=== PATIENT | female | born 1990 | race Caucasian/White ===

== ENCOUNTER 2021-09-18 12:08 | Emergency (ER) | payer OTHER ==
[~2021-09-18] VITALS: Ht 172.7 cm; Wt 54.5 kg
[2021-09-18 12:32] LABS: BASOPHILS % (AUTO) 0.3 % (0-1); EOSINOPHILS # (AUTO) 0.1 X10'3 (0-0.9); EOSINOPHILS % (AUTO) 0.7 % (0-6); HEMATOCRIT 45.9 % (35.0-45.0); HEMOGLOBIN 15.4 g/dl (12.0-16.0); LYMPHOCYTES # (AUTO) 1.6 X10'3 (1.1-4.8); LYMPHOCYTES % (AUTO) 11.9 % (21-51); MEAN CORPUSCULAR HEMOGLOBIN 30.4 PG (27.0-31.0); MEAN CORPUSCULAR HGB CONC 33.6 g/dL (33.0-36.5); MEAN CORPUSCULAR VOLUME 90.4 FL (78-98); MONOCYTES # (AUTO) 0.8 X10'3 (0-0.9); MONOCYTES % (AUTO) 5.5 % (2-12); NEUTROPHILS # (AUTO) 11.3 X10'3 (1.8-7.7); NEUTROPHILS % (AUTO) 81.6 % (42-75); PLATELET COUNT 284 X10'3 (140-440); RED BLOOD COUNT 5.08 X10'6 (4.20-5.60); RED CELL DISTRIBUTION WIDTH 13.9 % (11.5-14.5); WHITE BLOOD COUNT 13.9 X10'3 (4.5-11.0)
[2021-09-18 12:36] LABS: URINE HCG NEGATIVE (NEG)
[2021-09-18 12:43] LABS: ALANINE AMINOTRANSFERASE 29 U/L (12-78); ALBUMIN 4.2 G/DL (3.4-5.0); ALKALINE PHOSPHATASE 77 IU/L (46-116); ANION GAP 11 (8-16); ASPARTATE AMINO TRANSFERASE 17 U/L (10-37); BILIRUBIN,TOTAL 0.2 MG/DL (0.1-1.0); BLOOD UREA NITROGEN 11 MG/DL (7-18); BUN/CREATININE RATIO 14.5 (6.6-38.0); CALCIUM 8.9 MG/DL (8.5-10.1); CHLORIDE 105 MMOL/L (99-107); CREATININE 0.76 MG/DL (0.40-0.90); POTASSIUM 4.2 MMOL/L (3.5-5.1); SODIUM 141 MMOL/L (135-145); TOTAL PROTEIN 8.5 G/DL (6.4-8.2); eGFR 90 ML/MIN
[2021-09-18 12:47] LABS: CLARITY,URINE SLIGHTLY CLOUDY (Clear); COLOR,URINE STRAW (Yellow); GLUCOSE, URINE NEGATIVE (Neg); KETONES,URINE NEGATIVE (Neg); LEUKOCYTE ESTERASE ,URINE NEGATIVE (Neg); NITRITES, URINE NEGATIVE (Neg); OCCULT BLOOD,URINE NEGATIVE (Neg); PROTEIN,URINE NEGATIVE (Neg); UA COLLECTION TYPE CLN CATCH MIDSTREAM; UROBILINOGEN,URINE 0.2 E.U/dL (0.2-1.0)
[2021-09-18 12:50] LABS: URINE AMPHETAMINE SCREEN NEGATIVE (Neg); URINE BARBITUATE SCREEN NEGATIVE (Neg); URINE BENZODIAZEPINES SCREEN NEGATIVE (Neg); URINE CANNABINOID SCREEN NEGATIVE (Neg); URINE COCAINE SCREEN NEGATIVE (Neg); URINE METHADONE SCREEN NEGATIVE (Neg); URINE OPIATE SCREEN NEGATIVE (Neg); URINE PHENCYCLIDINE SCREEN NEGATIVE (Neg)
[2021-09-18 12:51] LABS: ETHANOL < 0.010 GM/DL (0.0-0.010); GLUCOSE 113 MG/DL (70-104)
[2021-09-18 12:52] LABS: BACTERIA,URINE 2+ /HPF (Neg); RBC,URINE NONE SEEN /HPF (0-2); SQUAMOUS EPITHELIAL CELL,UR MANY /LPF (FEW); WBC,URINE 0-4 /HPF (0-4)
--- NOTE | 2021-09-18 14:15 | NUR ---
Pt brought to [facility] from main ER with Sx od suicidal ideation. Pt calm and cooperative and placed in bed 24.
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
[2021-09-18] MEDS ORDERED: cloNIDine 0.1 mg tablet PO ONE (15:20)
[2021-09-18] MEDS: ALPRAZolam 0.5mg tablet PO SCH ×2 (15:48→20:39)
[2021-09-18] MEDS: gabapentin 300mg capsule PO SCH ×2 (15:48→20:39)
--- NOTE | 2021-09-18 17:34 | NUR ---
Pt took her routine meds and in bed sleeping w/o distress.
--- NOTE | 2021-09-18 19:00 | NUR ---
One to one with the patient who has been alert, oriented, cooperative and pleasant when approached for the evening assessment. She reports having low anxiety currently but states in recent weeks it has been "horrible" She stated that she also has been sleeping very poorly and has only been sleeping 3 hours per night. She denies psychotic symptoms.
--- NOTE | 2021-09-18 19:00 | NUR ---
records sent to [facility]
[2021-09-18] MEDS: cloNIDine 0.1 mg tablet PO SCH (20:39)
--- NOTE | 2021-09-18 21:00 | NUR ---
The patient appears to be sleeping
--- NOTE | 2021-09-18 22:29 | NUR ---
The patient appears to be sleeping
--- NOTE | 2021-09-19 00:53 | NUR ---
The patient appears to be sleeping
--- NOTE | 2021-09-19 01:53 | NUR ---
The patient appears to be sleeping
--- NOTE | 2021-09-19 03:55 | NUR ---
The patient appears to be sleeping
--- NOTE | 2021-09-19 05:27 | NUR ---
THe patient appears to be sleeping
--- NOTE | 2021-09-19 07:00 | NUR ---
Received pt asleep in bed without complaints.
[2021-09-19] MEDS: cloNIDine 0.1 mg tablet PO SCH ×2 (08:00→09:46)
[2021-09-19] MEDS: ALPRAZolam 0.5mg tablet PO SCH ×2 (08:15→13:20)
[2021-09-19] MEDS: gabapentin 300mg capsule PO SCH ×2 (08:20→13:20)
--- NOTE | 2021-09-19 09:00 | NUR ---
Pt cooperative with am assessment and medications. catapres held due to low blood pressure.
[2021-09-19 09:30] VITALS: BP 115/79
[2021-09-19] MEDS ORDERED: nicotine 21mg patch - 24 hr TD ONE (09:40)
--- NOTE | 2021-09-19 11:00 | NUR ---
Pt remains lying in bed. Pt c/o anxiety and loose stool. Pt requested medicine for loose stool; though, MD did not want to order anything currently but to encourage fluid intake.
--- NOTE | 2021-09-19 13:00 | NUR ---
Pt evaluated by [facility] and found to not meet criteria for 5150 and will be discharged. Pt polite and cooperative.
== END 2021-09-19 14:20 ==
LOC: ER 12:10
DX: R45.851 Suicidal ideations (principal); F41.9 Anxiety disorder, unspecified; F32.9 Major depressive disorder, single episode, unspecified; F17.200 Nicotine dependence, unspecified, uncomplicated; F19.90 Other psychoactive substance use, unspecified, uncomplicated
CPT/HCPCS: 36415; 80053; 80305; 80320; 81001; 81025; 84443; 85025; 99285